=== PATIENT | male | born 1950 | race Caucasian/White ===

== ENCOUNTER 2020-02-18 15:46 | Inpatient (IN) | payer OTHER, MEDICARE ==
[2020-02-18] MEDS ORDERED: Sodium Chloride 0.9% 1,000 ML IV ONE (15:50)
[2020-02-18] MEDS ORDERED: Piperacillin/Tazobactam 4.5 GM in Sodium Chloride 0.9% 100 ML IV ONE (15:50)
[2020-02-18] MEDS ORDERED: Sodium Chloride 0.9% 10 ML Syringe FLUSH PRN (15:50)
[2020-02-18] MEDS ORDERED: Lidocaine 1%/Sod Bicarbonate in NS 8.4% 1 ML Syringe IDERM PRN (15:50)
--- NOTE | 2020-02-18 15:53 | PCM.PREANE ---
Preanesthetic Assessment - Procedure Proposed Procedure: Laparoscopic Appendectomy - Anesthesia/Transfusion/Family Hx Anesthesia History: Prior Anesthesia Without Reaction Family History of Anesthesia Reaction: No Transfusion History: No Prior Transfusion(s) Intubation History: Unknown - Review of Systems General: Fever, Fatigue, Chills Pulmonary: No Symptoms (chew tobacco: 1 can/3 days, ETOH: occasionally) Cardiovascular: No Symptoms (HTN), Palpitations Gastrointestinal: No Symptoms (GERD/Known stomach ulcer per patient), Decreased Appetite Neurological: No Symptoms (Lower back pain) Other: Reports: Easy Bleeding - Physical Assessment NPO Status Date: 02/18/20 NPO Status Time: 12:00 Vital Signs: HR:83 Sat:97% Temp:98.2 Resp:16 B/P:148/83 Height: 1.68 m Weight: 74.843 kg ASA Class: 3E Mental Status: Alert & Oriented x3 Airway Class: Mallampati = 2 Dentition: Reports: Normal Dentition, Caries Thyro-Mental Finger Breadths: 3 Mouth Opening Finger Breadths: 3 ROM/Head Extension: Full Lungs: Clear to Auscultation, Normal Respiratory Effort Cardiovascular: Regular Rate, Regular Rhythm, No Murmurs - Lab Values: All labs reviewed and noted and within acceptable ranges to proceed with scheduled procedure. - Imaging/EKG Impressions: EKG:SR rate 81, probable left ventricular hypertrophy - Allergies Allergies/Adverse Reactions: Allergies Allergy/AdvReac Type Severity Reaction Status Date / Time Latex, Natural Rubber Allergy Cannot Verified 02/18/20 16:07 Remember - Anesthesia Plan Pre-Op Medication Ordered: Beta Robe Beta Robe: Atenolol Med Last Dose Date: 02/17/20 Med Last Dose Time: 21:00 - Acknowledgements Anesthesia Type Planned: General Anesthesia Pt an Appropriate Candidate for the Planned Anesthesia: Yes Alternatives and Risks of Anesthesia Discussed w Pt/Guardian: Yes Pt/Guardian Understands and Agrees with Anesthesia Plan: Yes PreAnesthesia Questionnaire - CURRENT (IN HOUSE) MEDS Current Meds: Current Medications Sodium Chloride (Normal Saline) 1,000 mls @ 999 mls/hr IV ONETIME ONE Stop: 02/18/20 16:50 Lactated Ringer's (Ringers, Lactated) 1,000 mls @ 125 mls/hr IV ASDIRECTED OLLIE Lidocaine/Sodium Bicarbonate (Buffered Lidocaine 1% In Ns 8.4%) 0.25 ml IDERM ONETIME PRN PRN Reason: Prior to IV Start Sodium Chloride (Saline Flush) 10 ml FLUSH ASDIRECTED PRN PRN Reason: Keep Vein Open
[2020-02-18] MEDS ORDERED: Dexamethasone 4 MG/ML 5 ML MDV ONE (15:56)
[2020-02-18] MEDS ORDERED: Succinylcholine/Sod PF 100 MG/5 ML SYRINGE IV ONE (15:56)
[2020-02-18] MEDS ORDERED: HYDROmorphone 0.5 MG/0.5 ML Syringe ONE (15:56)
[2020-02-18] MEDS ORDERED: Lactated Ringers 3,000 ML ONE (15:56)
[2020-02-18] MEDS ORDERED: Ondansetron 4 MG/2 ML SDV ONE (15:56)
[2020-02-18] MEDS ORDERED: Lidocaine 1% 4 ML ONE (15:56)
[2020-02-18] MEDS ORDERED: Rocuronium 50 MG/5 ML Vial ONE (15:56)
[2020-02-18] MEDS ORDERED: fentaNYL 250 MCG/5 ML SDV ONE (15:57)
[2020-02-18] MEDS ORDERED: Propofol 200 MG/20 ML SDV ONE (15:57)
[2020-02-18] MEDS ORDERED: Lactated Ringers 1,000 ML IV SCH (16:00)
[2020-02-18] MEDS ORDERED: Bupivacaine 0.5%/EPINEPHrine 1:200,000 50 ML MDV ONE (16:03)
[2020-02-18] MEDS ORDERED: ePHEDrine 50 MG/ML SDV ONE (17:17)
[2020-02-18] MEDS ORDERED: Ondansetron 4 MG/2 ML SDV IVPUSH PRN (17:20)
[2020-02-18] MEDS ORDERED: fentaNYL 100 MCG/2 ML SDV IVPUSH PRN (17:20)
[2020-02-18] MEDS ORDERED: diphenhydrAMINE 50 MG/ML SDV IVPUSH PRN (17:20)
[2020-02-18] MEDS ORDERED: ePHEDrine 50 MG/ML SDV IVPUSH PRN (17:20)
[2020-02-18] MEDS ORDERED: HYDROmorphone 0.5 MG/0.5 ML Syringe IVPUSH PRN (17:21)
[2020-02-18] MEDS ORDERED: Morphine 2 MG/ML SYRINGE IVPUSH PRN (18:51)
--- NOTE | 2020-02-18 18:52 | PCM.POSTAN ---
POST ANESTHESIA ASSESSMENT - MENTAL STATUS Mental Status: Alert - VITAL SIGNS Vital Signs: Last Vital Signs Temp 02/18/20 1842 Pulse 02/18/20 1842 Resp 02/18/20 1842 BP 02/18/20 1842 Pulse Ox 02/18/20 184 - RESPIRATORY Respiratory Status: Respiratory Rate WNL, Airway Patent, O2 Saturation Stable, Supplemental Oxygen - CARDIOVASCULAR CV Status: Pulse Rate WNL, Blood Pressure Stable - GASTROINTESTINAL GI Status: No Symptoms - POST OP HYDRATION Hydration Status: Adequate & Stable
--- NOTE | 2020-02-18 19:04 | PCM.PRNOTE ---
- Free Text/Narrative Note: Date: 02/18/2020 Operation: laparoscopic appendectomy Surgeon: Remington Coy MD EBL: 20 cc Antibiotic: zosyn 4.5 g IV pre-op DVT PPX: SCD Findings: perforated appendicitis with dense adhesion to the retroperitoneum Detailed Report: Patient was taken to the operating room and placed in supine position. Timeout was performed, and general endotracheal anesthesia was initiated. Abdominal hair was clipped, and the left arm was tucked at the patient's side. The abdomen was prepped and draped in usual sterile fashion. A Veress needle was inserted at the subcostal margin on the left side at Hope's point, and pneumoperitoneum was established. A bladed 12 mm port was placed just inferior to the umbilicus, and a 5 mm 30 degree laparoscope was inserted into the abdomen. Under laparoscopic vision, additional 5 mm ports were placed, one at the suprapubic region, and one at the left lower quadrant. The laparoscope was inserted through the lateral port, and the patient was positioned in Trendelenburg, and rotated towards the surgeon standing on the patient's left side. There was some thin purulent fluid in the right lower quadrant, which was suctioned. Blunt dissection ensued, and the tenia of the colon were traced down to try to find the appendix. The appendix was not readily visible, and was deep to the sigmoid colon and terminal ileum. The surrounding tissue was edematous and indurated. The lateral attachments of the cecum were divided to provide some mobility, and aid in identifying the appendix. Eventually the sigmoid colon and terminal ileum were reflected off of the appendix, and a gangrenous site at the midportion of the appendix with gross perforation was noted. On handling, pus and stool were expelled from the site of perforation. It was difficult to mobilize the appendix off of the retroperitoneum, which was done using the LigaSure. The appendix and surrounding inflamed, infected fatty tissue was removed piecemeal. The base of the appendix was defined, and a window through the mesoappendix was made in order to allow passage of the 30 mm powered stapler. The appendix was stapled at the base of the cecum, and all pieces of the appendix and devitalized surrounding tissue were placed in Endo Catch bag and removed through the 12 mm port site. The dissection field was thoroughly suctioned. No irrigation was used. A 10 Frisian Hilario-Godoy drain was introduced into the abdomen and brought out through the lateral port site. The drain lay in the dissection field where the appendix was, and was draped down into the pelvis as well. The 12 mm port was removed, and the incision was closed at the level of the fascia with 0 Vicryl using a PMI laparoscopic suture passer. The midline incisions were closed at the skin with Vicryl suture. The drain site was closed partially with an interrupted nylon suture, and the suture was used to secure the drain at the skin. Wounds were dressed with Mastisol and Steri-Strips. The patient tolerated the procedure well.
--- NOTE | 2020-02-18 19:28 | PCM.HP.2 ---
H&P History of Present Illness - General Date of Service: 02/18/20 Admit Problem/Dx: Admission Diagnosis/Problem Admission Diagnosis/Problem Laparoscopic appendectomy Source of Information: Provider History Limitations: Reports: No Limitations - History of Present Illness Initial Comments - Free Text/Narative: I was called by the patient's doctor in [place] this afternoon after the patient had been evaluated and was found to have abdominal pain, WBC 18,000 and findings of perforated appendicitis on CT scan. Aside from HTN, he has no significant comorbidities and no prior abdominal operations. Right Lower Abdomen Pain Score (Numeric/FACES): 2 - Related Data Allergies/Adverse Reactions: Allergies Allergy/AdvReac Type Severity Reaction Status Date / Time Latex, Natural Rubber Allergy Cannot Verified 02/18/20 16:07 Remember Home Medications: Home Meds Labetalol HCl [Labetalol] 100 mg PO DAILY 02/18/20 [History] lisinopriL [Lisinopril] 5 mg PO DAILY 02/18/20 [History] Past Medical History HEENT History: Reports: Impaired Vision Cardiovascular History: Reports: Hypertension Gastrointestinal History: Reports: GERD - Past Surgical History Male Surgical History: Reports: Other (See Below) Other Male Surgeries/Procedures: testicular sx Social & Family History - Family History Family Medical History: No Pertinent Family History - Tobacco Use Tobacco Use Status *Q: Current Every Day Tobacco User Years of Tobacco use: 55 Packs/Tins Daily: 0.3 - Caffeine Use Caffeine Use: Reports: None - Recreational Drug Use Recreational Drug Use: No H&P Review of Systems - Review of Systems: Review Of Systems: See Below General: Reports: Malaise HEENT: Reports: No Symptoms Pulmonary: Reports: No Symptoms Cardiovascular: Reports: No Symptoms Gastrointestinal: Reports: Abdominal Pain Genitourinary: Reports: No Symptoms Musculoskeletal: Reports: No Symptoms Skin: Reports: No Symptoms Psychiatric: Reports: No Symptoms Neurological: Reports: No Symptoms Hematologic/Lymphatic: Reports: No Symptoms Immunologic: Reports: No Symptoms Exam - Exam Exam: See Below - Vital Signs Vital Signs: Last Vital Signs Temp 37.4 C 02/18/20 19:10 Pulse 88 02/18/20 19:10 Resp 19 02/18/20 19:10 BP 117/75 02/18/20 19:10 Pulse Ox 94 L 02/18/20 19:10 Weight: 74.843 kg - Exam General: Alert, Oriented HEENT: Conjunctiva Clear Neck: Supple Lungs: Clear to Auscultation, Normal Respiratory Effort Cardiovascular: Regular Rate GI/Abdominal Exam: Soft, Tender Skin: Warm, Dry Neuro Extensive - Mental Status: Alert, Oriented x3 Psychiatric: Alert, Normal Affect, Normal Mood Sepsis Event Note - Evaluation Sepsis Screening Result: No Definite Risk - Focused Exam Vital Signs: Vital Signs Temp Pulse Pulse Resp BP Pulse Ox Pulse Ox 02/18/20 19:10 37.4 C 88 19 117/75 94 L 02/18/20 18:57 37.5 C 89 24 H 121/73 92 L 02/18/20 18:42 37.2 C 94 27 H 122/71 94 L 94 L 02/18/20 16:07 36.8 C 81 18 150/91 H 98 Problem List Initiated/Reviewed/Updated: Yes Orders Last 24hrs: Active Orders 24 hr Category Date Time Status Patient Status [ADT] Routine ADT 02/18/20 16:40 Active Activity as Tolerated [RC] .Routine Care 02/18/20 18:51 Active Antiembolic Devices [RC] PER UNIT ROUTINE Care 02/18/20 18:52 Active Communication Order [RC] ROUTINE Care 02/18/20 17:20 Active Cooling Warming Measures [RC] ASDIRECTED Care 02/18/20 17:20 Active EKG 12 Lead [EKG Documentation Completion] [RC] STAT Care 02/18/20 15:51 Active EKG Documentation Completion [RC] STAT Care 02/18/20 15:50 Active Insert Urinary Catheter [OM.PC] Stat Care 02/18/20 18:52 Ordered Notify Provider [RC] ASDIRECTED Care 02/18/20 17:20 Active Oxygen Therapy [RC] ASDIRECTED Care 02/18/20 17:20 Active Oxygen Therapy [RC] PRN Care 02/18/20 18:51 Active Peripheral IV Care [RC] . DIRECTED Care 02/18/20 15:50 Active Pulse Oximetry [RC] ASDIRECTED Care 02/18/20 17:20 Active RT Incentive Spirometry [RC] Q1HWA Care 02/18/20 18:51 Active Urinary Catheter Assessment [RC] ASDIRECTED Care 02/18/20 18:52 Active Verify Patient Consent Obtain [RC] ASDIRECTED Care 02/18/20 15:50 Active Vital Signs [RC] Q15M Care 02/18/20 17:20 Active Vital Signs [RC] Q15M Care 02/18/20 18:51 Active Vital Signs [RC] Q8H Care 02/18/20 18:51 Active Clear Liquid Diet [DIET] Diet 02/18/20 Breakfast Active BASIC METABOLIC PANEL,BMP [CHEM] AM Lab 02/19/20 05:11 Ordered CBC WITH AUTO DIFF [HEME] AM Lab 02/19/20 05:11 Ordered Acetaminophen [TylenoL] Med 02/18/20 19:00 Active 975 mg PO Q8H HYDROmorphone [Dilaudid] Med 02/18/20 17:21 Active 0.5 mg IVPUSH ONETIME PRN Lactated Ringers [Ringers, Lactated] 1,000 ml Med 02/18/20 16:00 Active IV ASDIRECTED Lactated Ringers [Ringers, Lactated] 1,000 ml Med 02/18/20 19:00 Ordered IV ASDIRECTED Lidocaine 1%/Sod Bicarbonate [Buffered Lidocaine 1% in Med 02/18/20 15:50 Active NS 8.4%] 0.25 ml IDERM ONETIME PRN Morphine Med 02/18/20 18:51 Active 1 mg IVPUSH Q4H PRN Ondansetron [Zofran] Med 02/18/20 17:20 Active 4 mg IVPUSH ONETIME PRN Ondansetron [Zofran] 4 mg Med 02/18/20 19:00 Active Sodium Chloride 0.9% [Normal Saline] 50 ml IV Q8H Phenylephrine HCl In 0.9% NaCl [Phenylephrine 1 MG/10 Med 02/18/20 17:20 Active ML-NS] See Dose Instructions IVPUSH ONETIME Piperacillin/Tazobactam [Piperacil-Tazobact] 4.5 gm Med 02/18/20 19:00 Ordered Sodium Chloride 0.9% [Normal Saline] 100 ml IV Q8H Sodium Chloride 0.9% [Saline Flush] Med 02/18/20 15:50 Active 10 ml FLUSH ASDIRECTED PRN diphenhydrAMINE [Benadryl] Med 02/18/20 17:20 Active 25 mg IVPUSH Q6H PRN ePHEDrine [ePHEDrine sulfate] Med 02/18/20 17:20 Active 5 mg IVPUSH ASDIRECTED PRN fentaNYL [Sublimaze] Med 02/18/20 17:20 Active 50 mcg IVPUSH Q5M PRN oxyCODONE Med 02/18/20 18:51 Active 5 mg PO Q4H PRN Medication Administration Instruction [OM.PC] Routine Oth 02/18/20 15:50 Ordered Peripheral IV Insertion Adult [OM.PC] Routine Oth 02/18/20 15:50 Ordered Schedule Procedure [COMM] Stat Oth 02/18/20 15:55 Ordered Sequential Compression Device [OM.PC] Routine Oth 02/18/20 18:51 Ordered Resuscitation Status Routine Resus Stat 02/18/20 18:51 Ordered Medication Orders Acetaminophen (Tylenol) 975 mg PO Q8H OLLIE Diphenhydramine HCl (Benadryl) 25 mg IVPUSH Q6H PRN PRN Reason: pruritis Stop: 02/18/20 23:00 Ephedrine Sulfate (Ephedrine Sulfate) 5 mg IVPUSH ASDIRECTED PRN PRN Reason: Hypotension Stop: 02/18/20 23:00 Fentanyl (Sublimaze) 50 mcg IVPUSH Q5M PRN PRN Reason: Pain Stop: 02/18/20 23:00 Hydromorphone HCl (Dilaudid) 0.5 mg IVPUSH ONETIME PRN PRN Reason: Pain Stop: 02/18/20 23:00 Lactated Ringer's (Ringers, Lactated) 1,000 mls @ 125 mls/hr IV ASDIRECTED OLLIE Stop: 02/18/20 23:00 Lactated Ringer's (Ringers, Lactated) 1,000 mls @ 100 mls/hr IV ASDIRECTED OLLIE Piperacillin Sod/Tazobactam (Sod 4.5 gm/ Sodium Chloride) 100 mls @ 25 mls/hr IV Q8H OLLIE Ondansetron HCl 4 mg/ Sodium (Chloride) 52 mls @ 100 mls/hr IV Q8H OLLIE Lidocaine/Sodium Bicarbonate (Buffered Lidocaine 1% In Ns 8.4%) 0.25 ml IDERM ONETIME PRN PRN Reason: Prior to IV Start Stop: 02/18/20 23:00 Miscellaneous Medication (Phenylephrine 1 Mg/10 Ml-Ns) 0 mg IVPUSH ONETIME OLLIE Stop: 02/18/20 23:00 Morphine Sulfate (Morphine) 1 mg IVPUSH Q4H PRN PRN Reason: Pain (severe 7-10) Ondansetron HCl (Zofran) 4 mg IVPUSH ONETIME PRN PRN Reason: Nausea/Vomiting Stop: 02/18/20 23:00 Oxycodone HCl (Oxycodone) 5 mg PO Q4H PRN PRN Reason: Pain (moderate 4-6) Sodium Chloride (Saline Flush) 10 ml FLUSH ASDIRECTED PRN PRN Reason: Keep Vein Open Stop: 02/18/20 23:00 Assessment/Plan Comment:: Findings of perforated appendicitis. Plan for laparoscopic appendectomy with drain placement. - Mortality Measure Prognosis:: Good
[2020-02-18] MEDS: Ondansetron 4 MG in Sodium Chloride 0.9% 50 ML IV SCH (21:03)
--- NOTE | 2020-02-18 21:07 | PCM48HPAN ---
Post Anesthesia Note - EVALUATION WITHIN 48HRS OF ANESTHETIC Vital Signs in Normal Range: Yes Patient Participated in Evaluation: Yes Respiratory Function Stable: Yes Airway Patent: Yes Cardiovascular Function Stable: Yes Hydration Status Stable: Yes Pain Control Satisfactory: Yes Nausea and Vomiting Control Satisfactory: Yes Mental Status Recovered: Yes Vital Signs: Last Vital Signs Temp 37.4 C 02/18/20 19:10 Pulse 88 02/18/20 20:00 Resp 15 02/18/20 20:00 BP 115/72 02/18/20 20:00 Pulse Ox 95 02/18/20 20:00
[2020-02-18] MEDS: oxyCODONE 5 MG Tab PO PRN (21:16)
[2020-02-18] MEDS: Acetaminophen 325 MG Tab PO SCH (21:16)
[2020-02-18] MEDS: Lactated Ringers 1,000 ML IV SCH (21:17)
[2020-02-19] MEDS ORDERED: Piperacillin/Tazobactam 4.5 GM in Sodium Chloride 0.9% 100 ML IV SCH ×2
[2020-02-19] MEDS ORDERED: FLU Vacc QV2020-21(65YR UP)/PF 240 MCG/0.7 ML Syringe IM ONE (03:00)
[2020-02-19] MEDS: Acetaminophen 325 MG Tab PO SCH ×3 (03:58→20:39)
[2020-02-19] MEDS: oxyCODONE 5 MG Tab PO PRN ×2 (03:59→09:51)
[2020-02-19] MEDS: Ondansetron 4 MG in Sodium Chloride 0.9% 50 ML IV SCH (04:00)
[2020-02-19] MEDS: Lactated Ringers 1,000 ML IV SCH (06:11)
[2020-02-19] MEDS ORDERED: Ondansetron 4 MG/2 ML SDV IVPUSH PRN (08:45)
[2020-02-19] MEDS ORDERED: Lactated Ringers 1,000 ML IV ONE (08:49)
[2020-02-19] MEDS ORDERED: Potassium Chloride 20 MEQ Tab.ER PO ONE (08:50)
[2020-02-19] MEDS: Heparin Sodium 5,000 Units/ML Vial SUBCUT SCH ×2 (09:50→17:45)
[2020-02-19] MEDS: Piperacillin/Tazobactam 4.5 GM in Sodium Chloride 0.9% 100 ML IV SCH ×2 (11:08→17:41)
--- NOTE | 2020-02-19 18:31 | PCM.SN.2 ---
- Free Text/Narrative Note: The patient is a 69-year-old man who presented from [place] yesterday after diagnosis of perforated appendicitis. He went to the operating room for laparoscopic appendectomy and drain placement on February 17. Subjective: Pain rated at a 4. Tolerating clear liquid diet. No flatus reported. No acute events overnight. Objective: Afebrile, vital signs stable Awake and alert in no acute distress Breathing comfortably on 2 L nasal cannula Regular rate and rhythm Abdomen soft, appropriately tender, serosanguineous drainage from NANI drain in right lower quadrant. Sanchez catheter in place with ample clear yellow urine output Assessment: Doing well after laparoscopic appendectomy for perforated appendicitis. Plan: -pain control with oxycodone -pulmonary toilet, IS, OOB -LR @ 100 cc/hr, with 1 L bolus, patient seems to make plenty of urine but labs suggest element of chronic kidney disease -Advance to regular diet as tolerated -Continue IV antibiotics while inpatient -SCDs, heparin for DVT prophylaxis -Repeat labs in the morning
[2020-02-20] MEDS: Piperacillin/Tazobactam 4.5 GM in Sodium Chloride 0.9% 100 ML IV SCH ×3 (01:32→17:10)
[2020-02-20] MEDS: Heparin Sodium 5,000 Units/ML Vial SUBCUT SCH ×3 (01:32→17:10)
[2020-02-20] MEDS: Acetaminophen 325 MG Tab PO SCH ×2 (03:39→10:31)
[2020-02-20] MEDS: Lactated Ringers 1,000 ML IV SCH (06:52)
[2020-02-20] MEDS ORDERED: Potassium Chloride 20 MEQ Tab.ER PO ONE (08:08)
--- NOTE | 2020-02-20 09:41 | PCM.DCSUM1 ---
Discharge Summary - Hospital Course Free Text/Narrative:: Mr. Mcintosh presented with findings of perforated appendicitis on 02/17 and was taken to the OR for laparoscopic appendectomy and drain placement. THe operation was completed without complication, and the patient was kept in house postoperatively for monitoring and continued IV antibiotics. He did well postoperatively. His pain was well controlled, he was ambulatory, able to eat regular food, and void. His NANI drain put out serous fluid. On POD 2 his WBC was down to normal. He was deemed fit for discharge to home with the drain in place, with plan for oral antibiotics for 10 days and follow up in clinic at the end of the week for assessment and possible drain removal. - Discharge Data Discharge Date: 02/20/20 Discharge Disposition: Home, Self-Care 01 Condition: Good - Referral to Home Health Primary Care Physician: Francheska Robles MD - Patient Instructions Diet: Usual Diet as Tolerated Activity: As Tolerated, No Lifting Over 10 Pounds Showering/Bathing: May Shower Wound/Incision Care: Keep Operative Site/Wound Site Clean and Dry Notify Provider of: Fever, Increased Pain, Swelling and Redness, Drainage, Nausea and/or Vomiting - Discharge Plan *PRESCRIPTION DRUG MONITORING PROGRAM REVIEWED*: Not Applicable *COPY OF PRESCRIPTION DRUG MONITORING REPORT IN PATIENT GARY: Not Applicable Prescriptions/Med Rec: Levofloxacin 500 mg PO DAILY #10 tablet metroNIDAZOLE [Metronidazole] 500 mg PO TID #30 tablet oxyCODONE 5 mg PO Q6H PRN #15 tab PRN Reason: Pain Home Medications: Home Meds Labetalol HCl [Labetalol] 100 mg PO DAILY 02/18/20 [History] lisinopriL [Lisinopril] 5 mg PO DAILY 02/18/20 [History] Levofloxacin 500 mg PO DAILY #10 tablet 02/20/20 [Rx] metroNIDAZOLE [Metronidazole] 500 mg PO TID #30 tablet 02/20/20 [Rx] oxyCODONE 5 mg PO Q6H PRN #15 tab 02/20/20 [Rx] Forms: ED Department Discharge Referrals: Francheska Robles MD [Primary Care Provider] - - Discharge Summary/Plan Comment DC Time >30 min.: No - Patient Data Vitals - Most Recent: Last Vital Signs Temp 36.7 C 02/20/20 08:01 Pulse 57 L 02/20/20 08:01 Resp 16 02/20/20 08:01 BP 122/79 02/20/20 08:01 Pulse Ox 98 02/20/20 08:01 Weight - Most Recent: 80.195 kg I&O - Last 24 hours: Intake & Output 02/19/20 02/20/20 02/20/20 22:59 06:59 14:59 Intake Total 2590 250 180 Output Total 895 2260 100 Balance 1694 -2009 80 Lab Results - Last 24 hrs: Laboratory Results - last 24 hr 02/20/20 02/20/20 Range/Units 05:30 05:30 WBC 9.72 H (4.23-9.07) K/mm3 RBC 4.08 L (4.63-6.08) M/mm3 Hgb 11.7 L (13.7-17.5) gm/dl Hct 36.8 L (40.1-51.0) % MCV 90.2 (79.0-92.2) fl MCH 28.7 (25.7-32.2) pg MCHC 31.8 L (32.2-35.5) g/dl RDW Std Deviation 46.5 H (35.1-43.9) fL Plt Count 209 (163-337) K/mm3 MPV 11.0 (9.4-12.3) fl Neut % (Auto) 87.0 H (34.0-67.9) % Lymph % (Auto) 7.9 L (21.8-53.1) % [place] % (Auto) 4.5 L (5.3-12.2) % Eos % (Auto) 0.5 L (0.8-7.0) Baso % (Auto) 0.0 L (0.1-1.2) % Neut # (Auto) 8.45 H (1.78-5.38) K/mm3 Lymph # (Auto) 0.77 L (1.32-3.57) K/mm3 [place] # (Auto) 0.44 (0.30-0.82) K/mm3 Eos # (Auto) 0.05 (0.04-0.54) K/mm3 Baso # (Auto) 0.00 L (0.01-0.08) K/mm3 Manual Slide Review Abnormal smear Sodium 137 (136-145) mEq/L Potassium 3.2 L (3.5-5.1) mEq/L Chloride 99 (98-107) mEq/L Carbon Dioxide 32 (21-32) mEq/L Anion Gap 9.2 (5-15) BUN 37 H (7-18) mg/dL Creatinine 2.3 H (0.7-1.3) mg/dL Est Cr Clr Drug Dosing 27.35 mL/min Estimated GFR (MDRD) 28 (>60) mL/min BUN/Creatinine Ratio 16.1 (14-18) Glucose 103 (80-115) mg/dL Calcium 8.5 (8.5-10.1) mg/dL Med Orders - Current: Current Medications Acetaminophen (Tylenol) 975 mg PO Q8H [facility] Last Admin: 02/20/20 03:39 Dose: 975 mg Documented by: Heparin Sodium (Porcine) (Heparin Sodium) 5,000 units SUBCUT Q8H [facility] Last Admin: 02/20/20 08:43 Dose: 5,000 units Documented by: Lactated Ringer's (Ringers, Lactated) 1,000 mls @ 100 mls/hr IV ASDIRECTED [facility] Last Admin: 02/20/20 06:52 Dose: 100 mls/hr Documented by: Piperacillin Sod/Tazobactam (Sod 4.5 gm/ Sodium Chloride) 100 mls @ 25 mls/hr IV Q8H [facility] Last Admin: 02/20/20 08:43 Dose: 25 mls/hr Documented by: Morphine Sulfate (Morphine) 1 mg IVPUSH Q4H PRN PRN Reason: Pain (severe 7-10) Ondansetron HCl (Zofran) 4 mg IVPUSH Q8H PRN PRN Reason: NAUSEA Oxycodone HCl (Oxycodone) 5 mg PO Q4H PRN PRN Reason: Pain (moderate 4-6) Last Admin: 02/19/20 09:51 Dose: 5 mg Documented by: Discontinued Medications Bupivacaine HCl/Epinephrine Bitart (Marcaine 0.5%/Epinephrine 1:200,000) Confirm Administered Dose 50 ml .ROUTE .STK-MED ONE Stop: 02/18/20 16:04 Last Admin: 02/18/20 17:38 Dose: 14 ml Documented by: Dexamethasone (Dexamethasone) Confirm Administered Dose 20 mg .ROUTE .STK-MED ONE Stop: 02/18/20 15:57 Diphenhydramine HCl (Benadryl) 25 mg IVPUSH Q6H PRN PRN Reason: pruritis Stop: 02/18/20 23:00 Ephedrine Sulfate (Ephedrine Sulfate) Confirm Administered Dose 50 mg .ROUTE .STK-MED ONE Stop: 02/18/20 17:18 Ephedrine Sulfate (Ephedrine Sulfate) 5 mg IVPUSH ASDIRECTED PRN PRN Reason: Hypotension Stop: 02/18/20 23:00 Fentanyl (Sublimaze) Confirm Administered Dose 250 mcg .ROUTE .STK-MED ONE Stop: 02/18/20 15:58 Fentanyl (Sublimaze) 50 mcg IVPUSH Q5M PRN PRN Reason: Pain Stop: 02/18/20 23:00 Glycopyrrolate (Robinul) Confirm Administered Dose 0.4 mg .ROUTE .STK-MED ONE Stop: 02/18/20 18:06 Glycopyrrolate (Robinul) Confirm Administered Dose 0.4 mg .ROUTE .STK-MED ONE Stop: 02/18/20 18:06 Hydromorphone HCl (Dilaudid) Confirm Administered Dose 0.5 mg .ROUTE .STK-MED ONE Stop: 02/18/20 15:57 Hydromorphone HCl (Dilaudid) 0.5 mg IVPUSH ONETIME PRN PRN Reason: Pain Stop: 02/18/20 23:00 Sodium Chloride (Normal Saline) 1,000 mls @ 999 mls/hr IV ONETIME ONE Stop: 02/18/20 16:50 Last Admin: 02/18/20 21:05 Dose: Not Given Documented by: Lactated Ringer's (Ringers, Lactated) 1,000 mls @ 125 mls/hr IV ASDIRECTED OLLIE Stop: 02/18/20 23:00 Piperacillin Sod/Tazobactam (Sod 4.5 gm/ Sodium Chloride) 100 mls @ 200 mls/hr IV ONETIME ONE Stop: 02/18/20 16:19 Last Admin: 02/18/20 21:05 Dose: Not Given Documented by: Lidocaine HCl (Xylocaine-Mpf 1%) Confirm Administered Dose 4 mls @ as directed .ROUTE .STK-MED ONE Stop: 02/18/20 15:57 Lactated Ringer's (Ringers, Lactated) Confirm Administered Dose 3,000 mls @ as directed .ROUTE .STK-MED ONE Stop: 02/18/20 15:57 Ondansetron HCl 4 mg/ Sodium (Chloride) 52 mls @ 100 mls/hr IV Q8H [facility] Last Admin: 02/19/20 04:00 Dose: Not Given Documented by: Piperacillin Sod/Tazobactam (Sod 4.5 gm/ Sodium Chloride) 100 mls @ 25 mls/hr IV Q8H OLLIE Stop: 02/19/20 03:59 Last Admin: 02/19/20 00:28 Dose: 25 mls/hr Documented by: Lactated Ringer's (Ringers, Lactated) 1,000 mls @ 1,000 mls/hr IV .BOLUS ONE Stop: 02/19/20 09:48 Last Admin: 02/19/20 09:50 Dose: 1,000 mls/hr Documented by: Influenza Virus Vaccine (Pharmacy To Dose - Influenza Vaccine) 1 each IM ONETIME ONE Stop: 02/19/20 02:51 Influenza Virus Vaccine (Fluzone High-Dose Quad ) 240 mcg IM .ONCE ONE Stop: 02/19/20 03:01 Lidocaine/Sodium Bicarbonate (Buffered Lidocaine 1% In Ns 8.4%) 0.25 ml IDERM ONETIME PRN PRN Reason: Prior to IV Start Stop: 02/18/20 23:00 Miscellaneous Medication (Phenylephrine 1 Mg/10 Ml-Ns) Confirm Administered Dose 1 mg .ROUTE .STK-MED ONE Stop: 02/18/20 17:08 Miscellaneous Medication (Phenylephrine 1 Mg/10 Ml-Ns) 0 mg IVPUSH ONETIME [facility] Stop: 02/18/20 23:00 Neostigmine Methylsulfate (Neostigmine Methylsulfate) Confirm Administered Dose 5 mg .ROUTE .STK-MED ONE Stop: 02/18/20 18:06 Ondansetron HCl (Zofran) Confirm Administered Dose 4 mg .ROUTE .STK-MED ONE Stop: 02/18/20 15:57 Ondansetron HCl (Zofran) 4 mg IVPUSH ONETIME PRN PRN Reason: Nausea/Vomiting Stop: 02/18/20 23:00 Potassium Chloride (Klor-Con M20) 40 meq PO ONETIME ONE Stop: 02/19/20 08:51 Last Admin: 02/19/20 09:50 Dose: 40 meq Documented by: Potassium Chloride (Klor-Con M20) 40 meq PO ONETIME ONE Stop: 02/20/20 08:09 Last Admin: 02/20/20 08:42 Dose: 40 meq Documented by: Propofol (Diprivan 20 Ml) Confirm Administered Dose 200 mg .ROUTE .STK-MED ONE Stop: 02/18/20 15:58 Rocuronium [place] (Zemuron) Confirm Administered Dose 50 mg .ROUTE .STK-MED ONE Stop: 02/18/20 15:57 Sodium Chloride (Saline Flush) 10 ml FLUSH ASDIRECTED PRN PRN Reason: Keep Vein Open Stop: 02/18/20 23:00
[2020-02-20] MEDS ORDERED: Magnesium Hydroxide 400 MG/5 ML Susp 30 ML Cup PO ONE (10:38)
[2020-02-20] MEDS: oxyCODONE 5 MG Tab PO PRN (12:58)
== END 2020-02-20 17:08 | disposition home or self-care (01) | DRG 373 ==
LOC: JD.ED 15:46 → JD.SDS 16:59 → JD.MS 19:48
PROVIDERS: ADMIT Surgery; ATTEND Surgery
DX: K35.32 Acute appendicitis with perforation, localized peritonitis, and gangrene, without abscess (principal); Z91.040 Latex allergy status; Z79.899 Other long term (current) drug therapy; H54.7 Unspecified visual loss; F17.200 Nicotine dependence, unspecified, uncomplicated; Z23 Encounter for immunization; I10 Essential (primary) hypertension; K21.9 Gastro-esophageal reflux disease without esophagitis; F17.210 Nicotine dependence, cigarettes, uncomplicated
CPT/HCPCS: 44970; 93005; J0330; J1100; J1170; J2001; J2370; J2405; J2704; J2710; J3010; J3490; J7120; 00840; 36415; 51798; 80048; 85025; 88304; 90662; A9270-GY; G0008; J1644; J2543; J7050